=== PATIENT | male | born 1980 | race Caucasian/White ===

== ENCOUNTER → 2018-01-31 | Outpatient (CLI) | payer MEDICAID ==
[~2018-01-31] MED LIST: ACYC400T4 PO; ALLO300T PO; BUSP5TAB2 PO; EYE DROPS LEFTEYE; FLUC200T PO; HYDR-3241 PO; HYDR-882 PO; LEVO500T47 PO; LORA0.5T PO; OMNIPAQUE 350 MG/ML, 100ML BOTTLE ONE; ONDA8TAB9 PO; SULF1TAB24 PO
== END | disposition home or self-care (01) ==
LOC: RAD 13:00
PROVIDERS: ATTEND Internal Medicine Hematology & Oncology
DX: C83.30 Diffuse large B-cell lymphoma, unspecified site (principal)
CPT/HCPCS: 71260; 74177; Q9967

== ENCOUNTER → 2019-08-13 | Outpatient (CLI) | payer MEDICAID ==
[~2019-08-13] MED LIST changes: +HYDR-3653 PO; -HYDR-882 PO
== END | disposition home or self-care (01) ==
LOC: CFH 11:51
PROVIDERS: ATTEND Internal Medicine Hematology & Oncology
DX: D18.09 Hemangioma of other sites (principal); C83.30 Diffuse large B-cell lymphoma, unspecified site; J98.11 Atelectasis
CPT/HCPCS: 71260; 74177; Q9967